=== PATIENT | male | born 1960 | race Caucasian/White ===

== ENCOUNTER 2016-10-04 17:20 | Observation (INO) | payer OTHER ==
[2016-10-04] VITALS (20 sets, daily range): BP systolic 114–147; RESP 10–19; TEMP 97.2–98.4
[~2016-10-04 17:20] MED LIST: DEXAMETHASONE 4 MG/ML VIAL ONE; FENTANYL 100 MCG/2 ML AMP ONE; GLYCOPYRROLATE 0.2 MG/ML VIAL ONE; LIDOCAINE 2% JELLY 30 ML TOPICAL ONE; LIDOCAINE 2% SYR 5 ML IV ONE; METOCLOPRAMIDE 10 MG/2 ML VIAL ONE; MIDAZOLAM 2 MG/2 ML INJ IV ONE; NEOSTIGMINE 10 MG/10 ML VIAL ONE; ONDANSETRON 4 MG VIAL ONE; PHENYLEPHRINE 0.25% NARE EACH ONE; PHENYLEPHRINE 10 MG/ML VIAL ONE; PROPOFOL 20 ML VIAL IV ONE; [UNRECOGNIZED DRUG - OTHER] NARE EACH ONE
[2016-10-04] MEDS ORDERED: SILVER NITRATE SWABS TOPICAL ONE (17:47)
[2016-10-04] MEDS ORDERED: SODIUM CHLORIDE 0.9% 1,000 ML ONE (18:36)
[2016-10-04] MEDS ORDERED: OXYCODONE 5 MG TAB PO PRN (20:15)
[2016-10-04] MEDS ORDERED: MORPHINE 4 MG/ML SYR IV PRN (20:15)
[2016-10-04] MEDS ORDERED: MORPHINE 2 MG/ML SYR IV PRN (20:15)
[2016-10-04] MEDS ORDERED: ONDANSETRON 4 MG VIAL IV PRN ×2 (20:15→20:55)
[2016-10-04] MEDS ORDERED: MEPERIDINE 25 MG/ML IV PRN (20:15)
[2016-10-04] MEDS ORDERED: LORTAB 7.5/325 ELIX 15 ML UDC PO PRN (20:55)
[2016-10-04] MEDS ORDERED: MORPHINE 4 MG/ML SYR IM/IV PRN (20:55)
[2016-10-04] MEDS ORDERED: LACT RINGERS 1,000 ML IV SCH (20:55)
[2016-10-04] MEDS ORDERED: SALINE FLUSH 10 ML FLUSH PRN (20:55)
[2016-10-04] MEDS: DILAUDID 1 MG/ML AMP IV PRN ×2 (21:08→21:29)
[2016-10-05 00:50] VITALS: BP_SYST 113; RESP 16; TEMP 98
[2016-10-05 02:00] VITALS: BP_SYST 120; RESP 16
[2016-10-05 03:47] VITALS: BP_SYST 115; RESP 16; TEMP 98
[2016-10-05] MEDS ORDERED: SODIUM CHLORIDE 0.9% FLUSH BAG 500 ML IV SCH (06:00)
[2016-10-05 07:00] VITALS: BP_SYST 127; RESP 16; TEMP 97.9
[2016-10-05] MEDS ORDERED: SALINE FLUSH 10 ML FLUSH SCH (08:00)
[2016-10-05] MEDS ORDERED: ACETAMINOPHEN 325 MG TAB PO PRN (08:40)
[2016-10-05] MEDS ORDERED: ACETAMINOPHEN 325 MG TAB ONE (08:43)
[2016-10-05 09:35] VITALS: BP_SYST 127; RESP 16; TEMP 97.9
== END 2016-10-05 09:26 | disposition home or self-care (01) ==
LOC: ENRESERVDT → ENRESERV → ENRESERVTM → ER 17:20 → SDS 20:52 → 5THW 22:25
PROVIDERS: ADMIT Otolaryngology; ATTEND Otolaryngology
DX: K91.841 Postprocedural hemorrhage of a digestive system organ or structure following other procedure (principal); Y83.8 Other surgical procedures as the cause of abnormal reaction of the patient, or of later complication, without mention of misadventure at the time of the procedure; C01 Malignant neoplasm of base of tongue; I10 Essential (primary) hypertension; K21.9 Gastro-esophageal reflux disease without esophagitis
CPT/HCPCS: 36415; 42999; 80048; 80053; 85025; 85610; 85730; 86850; 86900; 86901; 94762; 96360; 97799; 99291; G0378; J1170; J2001; J2250; J2405; J2704; J3010; J7120